=== PATIENT | male | born 1975 ===

== ENCOUNTER 2018-04-01 03:42 | Emergency (ER) | payer SELFPAY ==
[2018-04-01 04:04] VITALS: BMI 27.3
[2018-04-01 04:07] VITALS: RESP 16; O2SAT 99
[2018-04-01] MEDS ORDERED: Albuterol 0.083% Inhal Sol (2.5 mg/3 mL) UD INH STA (04:16)
[2018-04-01 05:19] LABS: ALB/GLOB RATIO 1.4 (1.0-2.1); ALBUMIN 4.5 g/dL (3.5-5.0); ALT/SGPT 41 U/L (21-72); AST/SGOT 52 U/L (17-59); BLOOD UREA NITROGEN 13 mg/dl (9-20); CALCIUM 8.8 mg/dL (8.4-10.2); GFR AFRICAN-AMERICAN > 60; GFR NON-AFRICAN AMERICAN > 60
[2018-04-01 05:28] LABS: BASO % 0.3 % (0.0-2.0); EOS # 0.3 K/uL (0.0-0.7); EOS % 2.1 % (0.0-4.0); HEMOGLOBIN 15.6 g/dL (12.0-18.0); LYMPH # 1.3 K/uL (1.0-4.3); LYMPH % 10.2 % (20.0-40.0); MEAN CORPUSCULAR HEMOGLOBIN 30.1 pg (27.0-31.0); MEAN CORPUSCULAR HGB CONC 33.1 g/dL (33.0-37.0); MONO # 1.1 K/uL (0.0-0.8); MONO % 8.3 % (0.0-10.0); NEUT # 10.2 K/uL (1.8-7.0); NEUT % 79.1 % (50.0-75.0); NRBC % 0.1 % (0.0-0.0); RBC 5.17 Mil/uL (4.40-5.90); RED CELL DISTRIBUTION WIDTH 14.5 % (11.5-14.5); WHITE BLOOD COUNT 12.9 K/uL (4.8-10.8)
--- NOTE | 2018-04-01 05:52 | ED PDOC ---
HPI: CCC, URI, Sore Throat Time Seen by Provider: 04/01/18 03:57 Chief Complaint (Nursing): Chest Pain Chief Complaint (Provider): Cough, fever Past Medical History Reviewed: Historical Data, Nursing Documentation, Vital Signs Vital Signs: Last Vital Signs Temp 98.5 F 04/01/18 06:00 Pulse 92 H 04/01/18 06:00 Resp 16 04/01/18 06:00 BP 127/77 04/01/18 06:00 Pulse Ox 99 04/01/18 06:00 - Medical History PMH: Asthma - Family History Family History: States: Unknown Family Hx - Home Medications Home Medications: Ambulatory Orders Medication Instructions Recorded Azithromycin [Zithromax] 250 mg PO DAILY #6 tab 04/01/18 - Allergies Allergies/Adverse Reactions: Allergies Allergy/AdvReac Type Severity Reaction Status Date / Time No Known Allergies Allergy Verified 04/01/18 04:04 - Laboratory Results Result Diagrams: 04/01/18 04:59 04/01/18 04:59 - ECG O2 Sat by Pulse Oximetry: 99 Disposition - Clinical Impression Clinical Impression: URI (upper respiratory infection) - Patient ED Disposition Is Patient to be Admitted: No Counseled Patient/Family Regarding: Diagnosis, Need For Followup, Rx Given - Disposition Disposition: Routine/Home Disposition Time: 05:52 Condition: STABLE Prescriptions: Azithromycin [Zithromax] 250 mg PO DAILY #6 tab Instructions: Bacterial Upper Respiratory Infection, Adult Forms: [facility] (Danish) Print Language: CYPRIOT
[2018-04-01 06:01] VITALS: BP 127/77; PULSE 92; TEMP 98.5
--- NOTE | 2018-04-01 08:00 | RAD ---
HISTORY: chest pain, fever COMPARISON: No prior. TECHNIQUE: Chest PA and lateral FINDINGS: LUNGS: No active pulmonary disease. PLEURA: No significant pleural effusion identified. No pneumothorax apparent. CARDIOVASCULAR: Normal. OSSEOUS STRUCTURES: No significant abnormalities. VISUALIZED UPPER ABDOMEN: Normal. OTHER FINDINGS: None. IMPRESSION: No active disease.
== END 2018-04-01 06:09 | disposition home or self-care (01) ==
LOC: H.ER 03:42
DX: J06.9 Acute upper respiratory infection, unspecified (principal)